=== PATIENT | female | born 1950 | race Caucasian/White ===

== ENCOUNTER 2017-02-09 06:03 | Inpatient (IN) | payer OTHER, MEDICARE ==
[2017-01-17 14:25] VITALS: BMI 35.0
--- NOTE | 2017-01-17 15:00 | PAT Medication Instructions ---
Service Date Jan 17, 2017. Current Home Medication List Anastrozole (Anastrozole), 1 TAB PO QAM Aspirin (Aspirin Ec), 81 MG PO QAM Atenolol/Chlorthalidone (Tenoretic 50 Mg/25 Mg), 1 TAB PO QAM Calcium Carbonate-Vitamin D (Calcium + D), 1 TAB PO QAM Cyclobenzaprine Hcl (Flexeril), 10 MG PO TID PRN for PRN Duloxetine HCl (Cymbalta), 1 CAP PO QAM Esomeprazole Magnesium (Nexium), 40 MG PO QAM Meloxicam (Mobic), 15 MG PO QAM Medication Instructions For Your Scheduled Surgery - Check with surgeon/prescribing physician for instructions: Anastrozole (Anastrozole), 1 TAB PO QAM Meloxicam (Mobic), 15 MG PO QAM - Hold the following medications the morning of surgery: Calcium Carbonate-Vitamin D (Calcium + D), 1 TAB PO QAM Cyclobenzaprine Hcl (Flexeril), 10 MG PO TID PRN for PRN - Take the following medications the morning of surgery with a sip of water: Esomeprazole Magnesium (Nexium), 40 MG PO QAM Duloxetine HCl (Cymbalta), 1 CAP PO QAM Aspirin (Aspirin Ec), 81 MG PO QAM Atenolol/Chlorthalidone (Tenoretic 50 Mg/25 Mg), 1 TAB PO QAM - Take the following medications as scheduled the night before surgery: Cyclobenzaprine Hcl (Flexeril), 10 MG PO TID PRN for PRN (if needed) If you have any questions please call us at [phone] or [phone] or [phone]
[2017-01-17 15:26] LABS: BASO % 0.4 %; BASO ABS # 0.03 K/uL (0-0.2); COMPLETE YES; EOS % 4.3 %; HEMATOCRIT 39.9 % (37-47); IG% 0.2 %; LYMPH % 28.3 %; LYMPH ABS # 2.31 K/uL (1.2-3.4); MEAN CELL VOLUME 91.7 fL (80-100); MEAN CORPUSCULAR HEMOGLOBIN 30.3 pg (25-34); MEAN CORPUSCULAR HGB CONC 33.1 g/dl (32-36); MEAN PLATELET VOLUME 9.9 fL (7.4-10.4); MONO % 7.1 %; NEUT % 59.7 %; PLATELET COUNT 315 K/uL (130-400); RED BLOOD COUNT 4.35 M/uL (4.2-5.4); WHITE BLOOD COUNT 8.17 K/uL (4.8-10.8)
[2017-01-17 15:32] LABS: URINE APPEARANCE CLEAR (CLEAR); URINE BILIRUBIN NEG (NEG); URINE COLOR YELLOW; URINE EPITHELIAL CELL AUTO >30 /lpf (0-5); URINE NITRITE NEG (NEG); URINE SPECIFIC GRAVITY 1.017 (1.000-1.030); UROBILINOGEN NEG (NEG); ZZUR CULT IF INDIC CLEAN CATCH NO
[2017-01-17 15:35] LABS: MANUAL MICROSCOPIC REQUIRED? NO; REVIEW REQ? NO
[2017-01-17 15:43] LABS: PARTIAL THROMBOPLASTIN RATIO 1.1
[2017-01-17 16:31] LABS: BUN/CREATININE RATIO 15.8 (10-20); CALCIUM 9.5 mg/dl (8.5-10.1); CREATININE 1.06 mg/dl (0.60-1.20); POTASSIUM 3.7 mmol/L (3.5-5.1)
[2017-01-18 07:55] LABS: ESTIMATED AVERAGE GLUCOSE 105 mg/dl; HA1C FLAG Normal (Normal)
--- NOTE | 2017-02-08 19:51 | HISTORY & PHYSICAL EXAMINATION ---
DATE OF ADMISSION: 02/09/2017 CHIEF COMPLAINT: Chronic left knee pain. HISTORY OF PRESENT ILLNESS: This is a 66-year-old female patient of Dr. Ochoa'liborio complaining of chronic left knee pain, longstanding, now progressively getting worse. The patient has failed conservative treatment including anti-inflammatories, intraarticular injections, viscosupplementation and physical therapy. She has also used a brace. The patient has increased pain with weightbearing activities and her pain does interfere with her activities of daily living. PAST MEDICAL HISTORY: Hypertension, hypercholesterolemia, acid reflux, hiatal hernia. PAST SURGICAL HISTORY: Gallbladder, bilateral foot surgery, bilateral carpal tunnel surgery, breast cancer surgery. REVIEW OF SYSTEMS: The patient complains of chronic left knee pain, otherwise denies any shortness of breath, chest pain, nausea, vomiting or joint complaints. FAMILY HISTORY: Noncontributory. MEDICATIONS: Duloxetine 30 mg daily, cyclobenzaprine 10 mg t.i.d., atenolol 50 mg daily, anastrozole 1 mg daily, Meloxicam 15 mg daily, calcium daily, aspirin 81 mg daily, Nexium 40 mg daily. ALLERGIES: INCLUDE DARVOCET AND MORPHINE. PHYSICAL EXAMINATION: GENERAL: Well-developed, well-nourished 66-year-old female in no acute distress. She is alert and oriented x3 and pleasant. HEENT: Normocephalic, atraumatic. Extraocular motions are intact. Pupils are equal and reactive to light. HEART: Regular rate and rhythm with no murmurs appreciated. LUNGS: Clear. ABDOMEN: Soft and nontender, bowel sounds are present. EXTREMITIES: Left knee reveals positive crepitation with painful range of motion of 0-125 degrees. She has a varus deformity. She has a moderate effusion. She has medial joint line tenderness. She has 4/5 strength. NEUROLOGIC: Neurovascularly, she is intact in her left lower extremity. DIAGNOSES: Left knee end-stage osteoarthritis with a history of hypertension, hypercholesterolemia, acid reflux, hiatal hernia. PLAN: The patient was advised of her diagnosis. Indications, risks, benefits, and postop course have all been reviewed. The patient wishes to proceed with a left total knee arthroplasty. Necessary consent forms, preoperative testing and clearances will be obtained.
[~2017-02-09] VITALS: Ht 170.2 cm; Wt 104.0 kg
[2017-02-09] VITALS (9 sets, daily range): BP systolic 96–148; BP diastolic 58–64; PULSE 89–116; TEMP 36.4–36.7; O2SAT 92–98; Ht 170.2 cm; Wt 104.0 kg
[~2017-02-09 06:03] MED LIST: ACETAMINOPHEN 500 MG TAB PO SCH; ANAS1TAB6 PO; ASPI81TA28 PO; ATEN-171 PO; CALC600T9 PO; CEFAZOLIN 2000MG IV PUSH 10 ML IV SCH; CYCL10TA6 PO; CYM/30 PO; CeleBREX 200 MG CAP PO SCH; DEXAMETHASONE 4 MG TAB PO SCH; FAMOTIDINE 20 MG TAB PO SCH; GABAPENTIN 300 MG CAP PO SCH; LACTATED RINGER'S 1000ML IV SCH; MELO7.5T5 PO; METOCLOPRAMIDE HCL 10 MG TAB PO SCH; NXM/40 PO; ROPIVACAINE 5MG/ML 30 ML 150 MG, BUPIVACAINE 0.5% MPF INJ 30 ML, EpINEphrine HCL INJ 0.... INFIL SCH; SCOPOLAMINE 1.5 MG TDSY TD SCH; TRANEXAMIC ACID INJ 1,000 MG in SYRINGE 0 ML IV SCH
[2017-02-09] MEDS ORDERED: TYLOTC500 PO (06:29)
[2017-02-09] MEDS ORDERED: BUPIVACAINE 0.5 % 5 MG/1 ML PF 10ML VIAL ONE (06:29)
[2017-02-09] MEDS: TRANEXAMIC ACID INJ 1,000 MG in SYRINGE 0 ML IV SCH ×2 (06:30→08:45)
--- NOTE | 2017-02-09 07:21 | History & Physical Bridge Note ---
H&P Re-Evaluation Bridge Note: I have examined the patient, reviewed the History & Physical and in the interval since the performance of the History & Physical I have noted the following changes of clinical significance: No changes noted
[2017-02-09] MEDS ORDERED: FENTANYL CITRATE INJ 50 MCG/1 ML 2 ML VIAL ONE (07:29)
[2017-02-09] MEDS ORDERED: MIDAZOLAM HCL 1 MG/ML 2ML VIAL ONE (07:29)
[2017-02-09] MEDS ORDERED: POVIDONE-IODINE OP SOLN 30 ML BTL ONE (07:59)
[2017-02-09] MEDS ORDERED: BACITRACIN 50000 UNIT VIAL ONE (07:59)
[2017-02-09] MEDS ORDERED: ORTHO JOINT ANESTHETIC ONE (07:59)
[2017-02-09] MEDS ORDERED: FENTANYL CITRATE INJ 50 MCG/1 ML 2 ML VIAL IV PRN (08:30)
[2017-02-09] MEDS ORDERED: EpHEDrine SULFATE INJ 50 MG/ML AMP IV PRN (08:30)
[2017-02-09] MEDS ORDERED: ONDANSETRON INJ 2 MG/ML 2 ML VIAL IV PRN ×2 (08:30→11:30)
[2017-02-09] MEDS ORDERED: ATROPINE SULFATE 0.1 MG/ML 5ML SYR IV PRN (08:30)
[2017-02-09] MEDS ORDERED: EpHEDrine SULFATE 50MG/5ML SYR ONE (10:35)
[2017-02-09] MEDS ORDERED: PROPOFOL IV EMULSION 10 MG/ML 20 ML VIAL IV ONE (10:35)
[2017-02-09] MEDS ORDERED: ONDANSETRON INJ 2 MG/ML 2 ML VIAL ONE (10:35)
[2017-02-09] MEDS ORDERED: PHENYLEPHRINE 100MCG/ML 5ML SYR ONE (10:35)
[2017-02-09] MEDS ORDERED: ESMOLOL HCL 10 MG/ML 10 ML VIAL ONE (10:35)
--- NOTE | 2017-02-09 11:01 | [facility] Post Operative Brief Note ---
Immediate Operative Summary Operative Date Feb 09, 2017. Pre-Operative Diagnosis Left knee end-stage osteoarthritis Post-Operative Diagnosis same as pre-operative Procedure(s) Performed Left Total Knee Arthroplasty-Cemented Surgeon Dr. John Ochoa Glassware Defect Repairer Surgeon(s) RUDDY Soni Estimated Blood Loss 5ml Findings djd varus grade 4 medial grade 2-3 patellofemoral Specimens Permanent Specimen A: Left knee bone and tissue Drains 2 hemovac Anesthesia spinal adductor block and orthomix Complication(s) None Disposition Recovery Room / PACU
[2017-02-09] MEDS ORDERED: MAGNESIUM HYDROXIDE SUSP 30 ML UDC PO PRN (11:30)
[2017-02-09] MEDS ORDERED: ALUMINUM/MAGNESIUM/SIMETH (MAALOX MAX) 30 ML UDC PO PRN (11:30)
[2017-02-09] MEDS ORDERED: HYDROmorphone INJ 0.5 MG/0.5 ML SYR IV PRN (11:30)
[2017-02-09] MEDS ORDERED: TRAMADOL HCL 50 MG TAB PO PRN (11:30)
[2017-02-09] MEDS ORDERED: OXYCODONE HCL IR 5 MG TAB (IMMEDIATE RELEASE) PO PRN (11:30)
--- NOTE | 2017-02-09 12:01 | DIAGNOSTIC IMAGING REPORT ---
TWO VIEWS LEFT KNEE CLINICAL HISTORY: Postoperative examination. FINDINGS: AP and crosstable lateral portable views of the left knee are obtained. A left knee arthroplasty is in near anatomic alignment. There has been undersurface remodeling of the patella. No acute fracture is seen. There are expected postoperative changes around the knee including skin clips, a surgical drain, soft tissue edema, and subcutaneous gas. IMPRESSION: Expected postoperative changes status post left knee arthroplasty. No acute fracture is seen. Electronically signed by: Irwin Norris M.D. 02/09/2017 11:59 AM Dictated Date/Time: 02/09/2017 11:59 AM
--- NOTE | 2017-02-09 12:53 | Anesthesiology Progress Note ---
Anesthesia Post Op Note Date & Time Feb 09, 2017 at 12:50 Vital Signs Pain Intensity: 0 Vital Signs Past 12 Hours Date Time Temp Pulse Resp B/P (MAP) Pulse Ox O2 Delivery O2 Flow Rate FiO2 02/09/17 12:49 36.2 02/09/17 12:20 36.7 16 104/52 (72) 99 Nasal Cannula 2 02/09/17 12:06 115/63 02/09/17 12:05 118 16 02/09/17 12:05 119 16 98 02/09/17 12:01 111/55 02/09/17 12:00 115 18 02/09/17 12:00 116 18 99 02/09/17 11:59 119 14 99 02/09/17 11:59 118 14 02/09/17 11:56 118/62 02/09/17 11:54 119 16 99 02/09/17 11:54 119 16 02/09/17 11:51 112/63 02/09/17 11:49 118 10 02/09/17 11:49 117 10 99 02/09/17 11:46 87/53 02/09/17 11:44 114 10 99 02/09/17 11:44 114 10 02/09/17 11:41 105/54 02/09/17 11:39 110 15 99 02/09/17 11:39 110 15 02/09/17 11:38 110 15 99 02/09/17 11:38 111 15 02/09/17 11:37 111 16 99 02/09/17 11:37 112 16 02/09/17 11:36 97/57 02/09/17 11:32 116 12 02/09/17 11:32 116 12 99 02/09/17 11:31 103/62 02/09/17 11:27 118 13 02/09/17 11:27 119 13 100 02/09/17 11:26 125/58 02/09/17 11:23 96/62 02/09/17 11:22 36.8 118 16 96/62 (73) 100 Oxymask 10 02/09/17 11:22 120 97 02/09/17 11:22 120 02/09/17 06:36 36.6 91 18 148/64 98 Room Air Notes Mental Status: alert / awake / arousable, participated in evaluation Pt Amnestic to Procedure: Yes Nausea / Vomiting: adequately controlled Pain: adequately controlled Airway Patency, RR, SpO2: stable & adequate BP & HR: stable & adequate, see Notes Hydration State: stable & adequate Anesthetic Complications: no major complications apparent Pt was noted to be tachycardic in PACU, HR 110-120. BP was stable throughout. An EKG was ordered showing sinus tachycardia. The pt was given a subsequent 500mL LR bolus. Pt's HR is still in the low 110s. BP 105/54. Pt denies CP, SOB, DEVRIES. Her spinal anesthetic is resolving. Pt was otherwise stable for discharge to her room.
[2017-02-09] MEDS: D5W AND 1/2NSS + 20MEQ KCL 1,000 ML IV SCH ×2 (14:05→23:31)
[2017-02-09] MEDS: ACETAMINOPHEN 500 MG TAB PO SCH ×2 (15:26→23:30)
[2017-02-09] MEDS: CHECK SCOPOLAMINE PATCH PLACEMENT SCH ×2 (15:26→23:29)
[2017-02-09] MEDS: FERROUS GLUCONATE 324 MG TAB PO SCH (18:04)
[2017-02-09] MEDS: CEFAZOLIN IV 2,000 MG in SYRINGE 0 ML IV SCH (18:04)
[2017-02-09] MEDS: CeleBREX 200 MG CAP PO SCH (20:41)
[2017-02-09] MEDS: ASPIRIN 81 MG ECTAB PO SCH (20:41)
[2017-02-09] MEDS: DOCUSATE SODIUM 100 MG CAP PO SCH (20:41)
[2017-02-09] MEDS: SENNA 8.6 MG TAB PO SCH (20:41)
--- NOTE | 2017-02-09 21:41 | OPERATIVE REPORT ---
DATE OF OPERATION: 02/09/2017 INDICATION FOR PROCEDURE: The patient is a 66-year-old female with progressive pain in her left knee. She has had knee arthroscopy surgery. Her radiographs demonstrate progressive arthritis. She has collapse of the medial femoral condyle, likely consistent with avascular necrosis. It is not 100% bone on bone but it is significantly narrowed medial compartment and she has had extensive conservative management, failed all conservative management and now presents for knee replacement surgery at this time. PREOPERATIVE DIAGNOSIS: Osteoarthritis, left knee, probable avascular necrosis medial femoral condyle. POSTOPERATIVE DIAGNOSIS: Same. PROCEDURE: Left total knee arthroplasty. SURGEON: John Ochoa MD. CARD WRITER HAND: Kevin Mann PA-C. ANESTHESIA: Regional block, adductor block, spinal and Orthomix. OPERATIVE PROCEDURE: The patient had an adductor block and spinal anesthetic, placed supine on the operating room table. Pneumatic tourniquet was placed on left upper thigh which was obese. Her left lower extremity was prepped and draped in sterile fashion. Exam demonstrated that she had a varus knee and she had full extension and flexion to 125 degrees. There is no particular instability. She had old arthroscopic portal scars. Leg was sterilely prepped and draped with ChloraPrep. Leg was elevated, exsanguinated with Esmarch bandage. Pneumatic tourniquet was raised to 325 mmHg. Anterior incision was made across the left knee. Skin incised sharply. Subcutaneous flaps were elevated. She had some thickened prepatellar bursa that was resected. The incision was made through medial retinaculum and extended up into the mid third of the quadriceps tendon and extended down to the medial tibial tubercle. Intraarticular findings demonstrated she did have tricompartmental DJD. She did have 1 small area of grade 4 wear on the anterior medial tibial plateau and few spots of grade 4 wear on the femoral condyle. She had otherwise generalized grade 2-3 DJD in the remainder of the knee. I used the [employer] Journey 2.0, total knee arthroplasty system using [employer] MRI templating, templating it for 4 femur and 2 tibia. To expose the knee, the infrapatellar fat pad was resected. The menisci were resected. The cruciate ligaments were resected. The fat pad over the anterior femur just to the joint line for placement of the component in that area was resected. She did have some intraarticular debris that was removed with a rongeur. The lateral synovial bands were released. The femur was then exposed with retractors. The custom femoral cutting block was pinned in position and the distal femoral cut was made. The 5-1 cutting block was placed for the size 4 femur. The anterior, posterior and chamfer cuts were made. The knee was then extended and a subperiosteal peel lateral release was performed around the patella and then the patella width was measured and was reproduced using a freehand cut technique and a 32 patellar component. Drill holes were made for this component and the excess lateral facet was beveled off to prevent any impingement. The tibia was then subluxed and the custom tibial cutting block was pinned in position. The proximal tibial cut was made. Ligament gaps were balanced in extension and flexion and we used the lamina welder 2nd shift to assist in that evaluation. The tibia was then resubluxed and the size 2 tibial trial was externally rotated in line with the tibial tubercle, pinned in position. The punch for the stem was used. The 4 femoral trial was inserted, centered and the notch cutting devices were used, the collet was placed and then a size 12 insert gave balanced ligaments through full range of motion. The patella did track slightly laterally, so we went ahead and did a lateral release leaving the synovium intact. The patella then tracked centrally. The trials were removed. The anesthetic cocktail was injected per protocol. The knee was copiously irrigated with pulsatile lavage antibiotic solution with bacitracin. Bony surfaces were dried. The final components were cemented with Simplex G cement. Final components were the 4 Oxinium posterior stabilized left femoral component of [employer] Journey 2.0 and 2 primary tibial baseplate, the 12 mm high flex posterior stabilized poly insert and a 32 patella domed. While the cement cured, Betadine soak was used per protocol. Then after further irrigation with pulsatile lavage antibiotic solution with bacitracin after the cement cured, the 2 drains were brought out laterally. The quadriceps tendon and medial retinaculum were then closed with interrupted [id number] #1 Vicryl sutures. The knee was taken through a full range of motion and repair was secured. The subcutaneous was closed with interrupted 2-0 Vicryl, skin was closed with stanley. Sterile dressings were applied and the patient tolerated the procedure well. RUDDY Soni was my psychological assistant. He functioned as psychological assistant through the entire procedure. He assisted in leg positioning, soft tissue retraction, instrument management and performed the fascial, subcutaneous and skin closure and will be participating in the postoperative care of the patient. I attest to the content of the Intraoperative Record and any orders documented therein. Any exception s are noted below.
[2017-02-10] VITALS (8 sets, daily range): BP systolic 97–118; BP diastolic 62–77; PULSE 60–85; TEMP 36.5–36.6; O2SAT 93–96
[2017-02-10] MEDS: CEFAZOLIN IV 2,000 MG in SYRINGE 0 ML IV SCH (02:26)
[2017-02-10 05:59] LABS: HEMATOCRIT 32.3 % (37-47); MEAN CELL VOLUME 89.2 fL (80-100); MEAN CORPUSCULAR HEMOGLOBIN 30.9 pg (25-34); MEAN CORPUSCULAR HGB CONC 34.7 g/dl (32-36); MEAN PLATELET VOLUME 10.1 fL (7.4-10.4); PLATELET COUNT 226 K/uL (130-400); RED BLOOD COUNT 3.62 M/uL (4.2-5.4); WHITE BLOOD COUNT 23.73 K/uL (4.8-10.8)
[2017-02-10 06:34] LABS: BUN/CREATININE RATIO 14.5 (10-20); CALCIUM 8.1 mg/dl (8.5-10.1); CREATININE 1.19 mg/dl (0.60-1.20); POTASSIUM 3.6 mmol/L (3.5-5.1)
[2017-02-10] MEDS: CHECK SCOPOLAMINE PATCH PLACEMENT SCH ×3 (07:45→23:18)
[2017-02-10] MEDS: ACETAMINOPHEN 500 MG TAB PO SCH ×3 (07:46→23:18)
--- NOTE | 2017-02-10 08:20 | Anesthesiology Progress Note ---
Anesthesia Post Op Note Date & Time Feb 10, 2017 at 08:19 Vital Signs Pain Intensity: 1.0 Vital Signs Past 12 Hours Date Time Temp Pulse Resp B/P (MAP) Pulse Ox O2 Delivery O2 Flow Rate FiO2 02/10/17 07:55 36.5 85 16 118/70 (86) 96 Room Air 02/10/17 03:21 36.5 83 16 110/69 (83) 94 Room Air 02/09/17 23:15 Room Air 02/09/17 23:07 36.5 89 14 100/58 (72) 93 Room Air Notes Mental Status: alert / awake / arousable, participated in evaluation Pt Amnestic to Procedure: Yes Nausea / Vomiting: adequately controlled Pain: adequately controlled Airway Patency, RR, SpO2: stable & adequate BP & HR: stable & adequate Hydration State: stable & adequate Anesthetic Complications: no major complications apparent
--- NOTE | 2017-02-10 09:02 | Orthopedic Progress Note ---
Orthopedic Progress Note Date of Service Feb 10, 2017. Subjective Post OP Day: 1 Reports: feeling well, pain controlled w PO medications, Denies: complaints, chest pain, SOB, nausea / vomiting, light headedness, calf pain Objective calves soft nontender, N/V intact, capillary refill less than 2 sec., dressing C /D/I, A&O x3, toes mobile Date Time Temp Pulse Resp B/P (MAP) Pulse Ox O2 Delivery O2 Flow Rate FiO2 02/10/17 08:43 96 Room Air 02/10/17 07:55 36.5 85 16 118/70 (86) 96 Room Air 02/10/17 03:21 36.5 83 16 110/69 (83) 94 Room Air 02/09/17 23:15 Room Air 02/09/17 23:07 36.5 89 14 100/58 (72) 93 Room Air 02/09/17 19:25 36.4 92 16 98/64 (75) 92 Room Air 02/09/17 18:58 92 Room Air 02/09/17 16:19 36.7 109 17 104/62 (76) 93 Room Air 02/09/17 15:30 Nasal Cannula 2.0 02/09/17 15:18 36.4 111 16 96/62 (73) 96 Nasal Cannula 2.0 02/09/17 14:23 36.6 109 17 102/64 (77) 97 Nasal Cannula 2.0 02/09/17 13:48 116 17 101/59 (73) 98 Nasal Cannula 2.0 02/09/17 13:15 36.5 112 14 102/61 (75) 97 Nasal Cannula 2.0 02/09/17 13:15 97 Nasal Cannula 2.0 02/09/17 13:15 97 Nasal Cannula 2.0 02/09/17 13:02 110 12 02/09/17 13:02 110 12 98 02/09/17 13:01 102/50 02/09/17 12:57 112 12 02/09/17 12:57 112 12 98 02/09/17 12:56 103/55 02/09/17 12:52 112 12 02/09/17 12:52 112 12 98 02/09/17 12:51 105/54 02/09/17 12:50 110 115/54 02/09/17 12:49 36.2 02/09/17 12:47 114 14 02/09/17 12:47 114 14 99 02/09/17 12:46 101/51 02/09/17 12:42 114 11 02/09/17 12:42 113 11 97 02/09/17 12:41 96/55 02/09/17 12:37 114 14 02/09/17 12:37 115 14 98 02/09/17 12:36 110/53 02/09/17 12:33 104/54 02/09/17 12:32 116 12 100 02/09/17 12:32 116 12 02/09/17 12:31 91/52 02/09/17 12:27 113 15 98 02/09/17 12:27 113 15 02/09/17 12:26 104/52 02/09/17 12:22 115 16 02/09/17 12:22 115 16 98 02/09/17 12:21 107/54 02/09/17 12:20 36.7 16 104/52 (72) 99 Nasal Cannula 2 02/09/17 12:17 114 12 98 02/09/17 12:17 114 12 02/09/17 12:16 117/58 02/09/17 12:12 117 13 97 02/09/17 12:12 117 13 02/09/17 12:11 112/61 02/09/17 12:07 119 13 02/09/17 12:07 119 13 98 02/09/17 12:06 115/63 02/09/17 12:05 118 16 02/09/17 12:05 119 16 98 02/09/17 12:01 111/55 02/09/17 12:00 115 18 02/09/17 12:00 116 18 99 02/09/17 11:59 119 14 99 02/09/17 11:59 118 14 02/09/17 11:56 118/62 02/09/17 11:54 119 16 99 02/09/17 11:54 119 16 02/09/17 11:51 112/63 02/09/17 11:49 118 10 02/09/17 11:49 117 10 99 02/09/17 11:46 87/53 02/09/17 11:44 114 10 99 02/09/17 11:44 114 10 02/09/17 11:41 105/54 02/09/17 11:39 110 15 99 02/09/17 11:39 110 15 02/09/17 11:38 110 15 99 02/09/17 11:38 111 15 02/09/17 11:37 111 16 99 02/09/17 11:37 112 16 02/09/17 11:36 97/57 02/09/17 11:32 116 12 02/09/17 11:32 116 12 99 02/09/17 11:31 103/62 02/09/17 11:27 118 13 02/09/17 11:27 119 13 100 02/09/17 11:26 125/58 02/09/17 11:23 96/62 02/09/17 11:22 36.8 118 16 96/62 (73) 100 Oxymask 10 02/09/17 11:22 120 97 02/09/17 11:22 120 Laboratory Results 24 Hours: Test 02/10/17 05:31 Hematocrit 32.3 % Hemoglobin 11.2 g/dL Assessment & Plan Assessment: POD #1, LEFT TKA Plan: PT/ OT DVT PROPH- ASA D/C PLANNING- HOME W OPPT SAT Inhouse Planning Pain Management: Celebrex, Ultram, Dilaudid, PO Tylenol, Oxy IR DVT Prophylaxis: TEDs, SCDs, ASA Discharge Planning Discharge Planning: home with oppt Pain Management: Celebrex, PO Tylenol, Oxy IR DVT Prophylaxis: TEDs, ASA Therapy: Physical Therapy, Occupational Therapy
[2017-02-10] MEDS: DULOXETINE (CYMBALTA) 30 MG CAP PO SCH (09:08)
[2017-02-10] MEDS: DOCUSATE SODIUM 100 MG CAP PO SCH ×2 (09:08→21:08)
[2017-02-10] MEDS: CeleBREX 200 MG CAP PO SCH ×2 (09:08→21:08)
[2017-02-10] MEDS: FERROUS GLUCONATE 324 MG TAB PO SCH ×3 (09:09→18:15)
[2017-02-10] MEDS: PANTOprazole SOD 40 MG TAB PO SCH (09:09)
[2017-02-10] MEDS: MULTIVITAMIN TAB PO SCH (09:09)
[2017-02-10] MEDS: ASPIRIN 81 MG ECTAB PO SCH ×2 (09:09→21:08)
[2017-02-10] MEDS: CHLORTHALIDONE 25 MG TAB PO SCH (09:10)
[2017-02-10] MEDS: ANASTROZOLE 1 MG TAB PO SCH (09:12)
[2017-02-10] MEDS: D5W AND 1/2NSS + 20MEQ KCL 1,000 ML IV SCH (09:13)
--- NOTE | 2017-02-10 14:22 | Medical Consult ---
Consultation Date of Consultation: Feb 10, 2017. Attending Physician: John Ochoa M.D. Reason for Consultation: Medical management History of Present Illness Pt is a 66 yo female with worsening left knee pain who has failed outpatient measures including anti-inflammatories, intraarticular injections, and PT. Pt status post left TKA, and consulted to our services for medical management. Pt reports pain controlled and doing well with PT. No further concerns expressed per patient. Social History Smoking Status: Never Smoker Alcohol Use: none Drug Use: none Allergies Coded Allergies: Morphine (Verified Adverse Reaction, Unknown, NAUSEA AND VOMITING, ) Propoxyphene (Verified Adverse Reaction, Unknown, NAUSEA AND VOMITING, ) Current Inpatient Medications Current Inpatient Medications Medications (Trade) Dose Ordered Sig/Praveen Route Start Time Stop Time Status Last Admin Dose Admin Miscellaneous (Remove Transderm-Scop Patch) 1 ea Q72H N/A 02/12/17 06:00 02/12/17 06:01 Miscellaneous Information (Check Scopolamine Patch Placement) 1 ea QS N/A 02/09/17 16:00 02/12/17 05:59 02/10/17 07:45 1 EA Anastrozole (Arimidex Tab) 1 mg QAM PO 02/10/17 09:00 03/12/17 08:59 02/10/17 09:12 1 MG Duloxetine HCl (Cymbalta Cap) 30 mg QAM PO 02/10/17 09:00 03/12/17 08:59 02/10/17 09:08 30 MG Atenolol (Tenormin Tab) 50 mg QAM PO 02/10/17 09:00 03/12/17 08:59 02/10/17 09:13 50 MG Hydromorphone HCl (Dilaudid Inj) 0.5 mg Q4HWA PRN IV 02/09/17 11:30 02/23/17 11:29 Celecoxib (CeleBREX CAP) 200 mg BID PO 02/09/17 21:00 03/11/17 20:59 02/10/17 09:08 200 MG Oxycodone HCl (Roxicodone Immediate Rel Tab) 1 TABLET FOR PAIN RATING... Q4H PRN PO 02/09/17 11:30 02/23/17 11:29 Acetaminophen (Tylenol Tab) 1,000 mg Q8H PO 02/09/17 16:00 03/11/17 11:29 02/10/17 07:46 1,000 MG Magnesium Hydroxide (Milk Of Magnesia Susp) 30 ml Q6H PRN PO 02/09/17 11:30 03/11/17 11:29 Senna (Senokot Tab) 17.2 mg HS PO 02/09/17 21:00 03/11/17 20:59 02/09/17 20:41 17.2 MG Docusate Sodium (coLACE CAP) 100 mg BID PO 02/09/17 21:00 03/11/17 20:59 02/10/17 09:08 100 MG Al Hydrox/Mg Hydrox/Simethicone (Maalox Max Susp) 15 ml Q4H PRN PO 02/09/17 11:30 03/11/17 11:29 Multivitamins (Multivitamin Tab) 1 tab QAM PO 02/10/17 09:00 03/12/17 08:59 02/10/17 09:09 1 TAB Ondansetron HCl (Zofran Inj) 4 mg Q6H PRN IV 02/09/17 11:30 03/11/17 11:29 Ferrous Gluconate (Ferrous Gluconate Tab) 324 mg TIDM PO 02/09/17 17:45 03/11/17 17:44 02/10/17 12:13 324 MG Pantoprazole Sodium (Protonix Tab) 40 mg QAM PO 02/10/17 09:00 02/13/17 09:01 02/10/17 09:09 40 MG Tramadol HCl (Ultram Tab) 1 tablet for pain rating... Q4H PRN PO 02/09/17 11:30 03/11/17 11:29 Aspirin (Ecotrin Tab) 81 mg BID PO 02/09/17 21:00 03/11/17 20:59 02/10/17 09:09 81 MG Chlorthalidone (Hygroton Tab) 25 mg QAM PO 02/10/17 09:00 03/12/17 08:59 02/10/17 09:10 25 MG Review of Systems Constitutional: No fever, No chills, No sweats, No weakness Eyes: No worsening of vision, No eye pain, No redness, No discharge Respiratory: No cough, No sputum, No wheezing, No shortness of breath Cardiovascular: No chest pain, No orthopnea, No PND, No edema Abdomen: No pain, No nausea, No vomiting, No diarrhea Musculoskeletal: No joint pain, No muscle pain, No swelling, No calf pain Genitourinary - Female: No dysuria, No urinary frequency, No urinary urgency, No urinary incontinence Neurologic: No memory loss, No paralysis, No weakness, No numbness/tingling Psychiatric: No depression symptoms, No anhedonism, No anxiety, No insomnia Endocrine: No fatigue, No excessive thirst, No excessive urination Integumentary: No rash, No itch Allergic / Immunologic: No environmental allergies, No seasonal allergies, No pet sensitivities, No food allergies Physical Exam Date Time Temp Pulse Resp B/P (MAP) Pulse Ox O2 Delivery O2 Flow Rate FiO2 02/10/17 11:59 36.5 60 16 100/66 (77) 94 Room Air 02/10/17 09:44 77 96 02/10/17 08:43 96 Room Air 02/10/17 07:55 36.5 85 16 118/70 (86) 96 Room Air 02/10/17 07:45 96 Room Air 02/10/17 03:21 36.5 83 16 110/69 (83) 94 Room Air 02/09/17 23:15 Room Air 02/09/17 23:07 36.5 89 14 100/58 (72) 93 Room Air 02/09/17 19:25 36.4 92 16 98/64 (75) 92 Room Air 02/09/17 18:58 92 Room Air 02/09/17 16:19 36.7 109 17 104/62 (76) 93 Room Air 02/09/17 15:30 Nasal Cannula 2.0 02/09/17 15:18 36.4 111 16 96/62 (73) 96 Nasal Cannula 2.0 02/09/17 14:23 36.6 109 17 102/64 (77) 97 Nasal Cannula 2.0 General Appearance: WD/WN, no apparent distress Head: normocephalic, atraumatic Eyes: normal inspection, PERRL, EOMI, sclerae normal ENT: normal ENT inspection, hearing grossly normal, TMs normal, pharynx normal Neck: supple, no adenopathy, thyroid normal, no JVD Respiratory/Chest: chest non-tender, lungs clear, normal breath sounds, no respiratory distress Cardiovascular: regular rate, rhythm, no edema, no gallop, no JVD Abdomen/GI: normal bowel sounds, non tender, soft, no organomegaly, no pulsatile mass Back: normal inspection, no CVA tenderness, no muscle spasm Extremities/Musculoskelatal: normal inspection, no calf tenderness, normal capillary refill, no pedal edema Neurologic/Psych: no motor/sensory deficits, alert, normal mood/affect, oriented x 3 Skin: normal color, warm/dry, no rash Lymphatic: no adenopathy Laboratory Results Last 24 Hours Test 02/10/17 05:31 White Blood Count 23.73 K/uL Red Blood Count 3.62 M/uL Hemoglobin 11.2 g/dL Hematocrit 32.3 % Mean Corpuscular Volume 89.2 fL Mean Corpuscular Hemoglobin 30.9 pg Mean Corpuscular Hemoglobin Concent 34.7 g/dl RDW Standard Deviation 41.0 fL RDW Coefficient of Variation 12.7 % Platelet Count 226 K/uL Mean Platelet Volume 10.1 fL Sodium Level 133 mmol/L Potassium Level 3.6 mmol/L Chloride Level 96 mmol/L Carbon Dioxide Level 30 mmol/L Anion Gap 7.0 mmol/L Blood Urea Nitrogen 17 mg/dl Creatinine 1.19 mg/dl Est Creatinine Clear Calc Drug Dose 56.9 ml/min Estimated GFR () 54.7 Estimated GFR (Non- 47.2 BUN/Creatinine Ratio 14.5 Random Glucose 180 mg/dl Calcium Level 8.1 mg/dl Assessment & Plan Pt is a 66 yo female w/ chronic left knee pain s/p left TKA POD#1 Left TKA - Reports pain controlled. DVT ppx and dispo per primary team. PT consulted. HTN - Controlled with atenolol/chlorthalidone Dyslipidemia stable Hiatal hernia/GERD - Cont PPI FULL CODE DVT ppx with ASA BID
--- NOTE | 2017-02-10 17:45 | Discharge Instructions ---
Discharge Instructions Date of Service Feb 10, 2017. Admission Reason for Admission: Left Knee Degenerative Joint Disease Discharge Discharge Diagnosis / Problem: left knee degenerative joint disease Discharge Goals Goal(s): Decrease discomfort, Improve function Activity Recommendations Activity Limitations: per Instructions/Follow-up section Weightbearing Status: Left weightbearing (as tolerated) . Instructions / Follow-Up Instructions / Follow-Up ACTIVITY RECOMMENDATIONS: SELF CARE INSTRUCTIONS AFTER TOTAL KNEE REPLACEMENT A. You may need to continue a physical therapy program after discharge from the hospital. There are several options available to you. Your doctor will assist you in selecting the best one for you. 1. An out-patient facility 3 times a week for therapy. 2. Home therapy for 1 to 2 weeks with outpatient therapy to follow. 3. Continue working on all exercises taught by physical therapy three times a day for 20 minutes on non-therapy days. Your goals should be to increase the bending of your knee to 90 degrees and beyond and to fully straighten your knee. Ice and elevate knee after exercise. B. Weight as tolerated with a walker or as instructed by your physician. C. It is okay to shower if minimal to no drainage from incision. No Baths. Do not soak wound. D. Make walking a part of your daily routine. Be up as much as comfortable with rest periods throughout the day. Rest with leg elevation is very important. Use the ice wrap frequently for the first 3-4 weeks. E. There are no restrictions on activities. You may ride in a car, shop, participate in assistant to the vice president and all social activities. F. Wear the long elastic stockings (KIMI hose) 20 hours a day for one month after surgery. They can be removed several times a day for laundering and when showering. G. Silverlon- This is a large adhesive bandage that contains silver ions. This helps your incision heal by fighting off bacteria and protecting it from the outside environment. You are permitted to shower with this dressing. This will remain on your incision for 7 days and then should be removed. Some visible blood or drainage through the dressing window is normal. If there is significant drainage or leaking noted before the 7 days notify your doctor's office immediately. Once removed, keep incision clean and dry. If there is any drainage or redness noted, please call your surgeon. SPECIAL CARE INSTRUCTIONS: VERY IMPORTANT TO READ AND REVIEW A. Take Coumadin, Xarelto, Aspirin or Lovenox (blood thinning medications) as directed by your doctor. If on Coumadin, have a pro-time (blood test) drawn according to your doctor's instructions. This will tell the doctor how well the Coumadin is thinning your blood. B. There are a few signs you need to watch for after you are home. Call [facility] if you notice any of the followin. Increased severe knee pain. Some pain is expected especially when you exercise. 2. Increased swelling in your leg or knee; pain or swelling of the calf muscle in either lower leg. 3. Any redness or fluid drainage from the incision. 4. Shortness of breath or chest pain. 5. A Temperature of 101 degrees F or greater. C. Please call [facility] at if you have any concerns or questions about your operation or recovery. The doctor or his nurse will return your call promptly. D. You must take antibiotics before dental work, bladder, bowel or other surgery. Your doctor will provide you with a permanent care to carry describing this precaution. FOLLOW UP VISIT: If appointment is not already scheduled: Please call [facility] to make a follow-up appointment for one month after your surgery at . Current Hospital Diet Patient's current hospital diet: Regular Diet Discharge Diet Recommended Diet: Regular Diet Procedures Procedures Performed: Left Total Knee Arthroplasty-Cemented Pending Studies Studies pending at discharge: no Laboratory Results Hemoglobin A1c Test 01/17/17 15:05 Range/Units Estimated Average Glucose 105 mg/dl Hemoglobin A1c 5.3 4.5-5.6 % Medical Emergencies . Who to Call and When: Medical Emergencies: If at any time you feel your situation is an emergency, please call 911 immediately. . Non-Emergent Contact Non-Emergency issues call your: Surgeon Call Non-Emergent contact if: temperature is above 101, your pain is not controlled, your pain is worsening, wound has increased drainage, wound has increased redness . "Provider Documentation" section prepared by Eric Marques. . VTE Core Measure Inpt VTE Proph given/why not?: Lisa Post, JUAN FRANCISCO's
[2017-02-10] MEDS: SENNA 8.6 MG TAB PO SCH (21:08)
[2017-02-11 06:50] VITALS: BP 130/79; PULSE 64; TEMP 36.5; O2SAT 98
[2017-02-11] MEDS: CHECK SCOPOLAMINE PATCH PLACEMENT SCH (08:00)
--- NOTE | 2017-02-11 08:14 | Orthopedic Progress Note ---
Orthopedic Progress Note Date of Service Feb 11, 2017. Subjective Post OP Day: 2 Reports: feeling well, pain controlled w PO medications, Denies: complaints, chest pain, nausea / vomiting, light headedness, calf pain Objective calves soft nontender, N/V intact, capillary refill less than 2 sec., dressing C /D/I, A&O x3, toes mobile Date Time Temp Pulse Resp B/P (MAP) Pulse Ox O2 Delivery O2 Flow Rate FiO2 02/11/17 06:50 36.5 64 16 130/79 (96) 98 Room Air 02/10/17 23:20 Room Air 02/10/17 22:47 36.6 65 15 118/77 (91) 94 Room Air 02/10/17 15:15 Room Air 02/10/17 14:58 36.6 84 16 97/62 (74) 93 Room Air 02/10/17 11:59 36.5 60 16 100/66 (77) 94 Room Air 02/10/17 09:44 77 96 02/10/17 08:43 96 Room Air Assessment & Plan Assessment: POD #2, LEFT TKA Plan: PT/ OT DVT PROPH- ASA D/C PLANNING- HOME W OPPT today Inhouse Planning Pain Management: Celebrex, Ultram, Dilaudid, PO Tylenol, Oxy IR DVT Prophylaxis: TEDs, SCDs, ASA Discharge Planning Discharge Planning: home with oppt Pain Management: Celebrex, PO Tylenol, Oxy IR DVT Prophylaxis: TEDs, ASA Therapy: Physical Therapy, Occupational Therapy
[2017-02-11] MEDS ORDERED: CLB200 PO (08:17)
[2017-02-11] MEDS ORDERED: ONDA8TAB6 PO (08:17)
[2017-02-11] MEDS ORDERED: ACET-24 PO (08:17)
[2017-02-11] MEDS ORDERED: RXC5 PO (08:17)
[2017-02-11] MEDS ORDERED: ASPEC81 PO (08:17)
[2017-02-11] MEDS: CeleBREX 200 MG CAP PO SCH (08:31)
[2017-02-11] MEDS: FERROUS GLUCONATE 324 MG TAB PO SCH (08:31)
[2017-02-11] MEDS: ACETAMINOPHEN 500 MG TAB PO SCH (08:31)
[2017-02-11] MEDS: DULOXETINE (CYMBALTA) 30 MG CAP PO SCH (08:32)
[2017-02-11] MEDS: DOCUSATE SODIUM 100 MG CAP PO SCH (08:32)
[2017-02-11] MEDS: ASPIRIN 81 MG ECTAB PO SCH (08:32)
[2017-02-11] MEDS: CHLORTHALIDONE 25 MG TAB PO SCH (08:32)
[2017-02-11] MEDS: PANTOprazole SOD 40 MG TAB PO SCH (08:33)
[2017-02-11] MEDS: MULTIVITAMIN TAB PO SCH (08:33)
[2017-02-11] MEDS: ANASTROZOLE 1 MG TAB PO SCH (08:37)
[2017-02-11 09:14] VITALS: BP 130/79; PULSE 64; TEMP 36.5; O2SAT 98
--- NOTE | 2017-02-13 14:47 | DISCHARGE SUMMARY ---
DISCHARGE DIAGNOSIS: Degenerative joint disease, left knee. SECONDARY DIAGNOSES: Hypertension, hypercholesterolemia, gastroesophageal reflux disease and hiatal hernia. CONSULTS: Luis Burciaga DO COMPLICATIONS: None. PROCEDURES: Left total knee arthroplasty performed by Dr. Ochoa on 02/09/2017. BRIEF HISTORY: As dictated in history and physical. HOSPITAL SUMMARY: The patient was admitted on the above-noted date and had the above-noted surgery performed which she tolerated well. On her first postoperative day, she was feeling well and had no complaints. Calves were soft, nontender, neurovascularly intact. Dressings clean, dry and intact. Toes were mobile. Vital signs stable, she was afebrile and hemoglobin was 11.2. She was started on physical therapy protocol and continued on DVT prophylaxis and pain management. Plans were for her to do outpatient PT upon discharge. By her second postoperative day, she was feeling well and pain was controlled. Calves were soft and nontender, neurovascularly intact. Dressings clean, dry and intact. Toes were mobile. Vital signs were stable. She was afebrile. She was progressing well with her physical therapy and remaining stable and it was felt she could be discharged to home. For further review, please see chart. LABORATORY AND X-RAY DATA: As per chart. DISCHARGE INSTRUCTIONS: The patient was discharged to home in satisfactory condition on 02/11/2017. DIET: Regular. ACTIVITY: Weightbearing as tolerated, left lower extremity. Follow TK instruction sheets and special care instructions as noted. FOLLOWUP: Follow up with Dr. Ochoa in 2 weeks. The patient to call for appointment if one has not been made for you. DISCHARGE MEDICATIONS: Acetaminophen 1000 mg p.o. q. 8 hours, aspirin 81 mg p.o. b.i.d. for 30 days, Celebrex 200 mg p.o. b.i.d., Zofran 8 mg p.o. q. 8 hours p.r.n. nausea, oxycodone 5-10 mg p.o. q. 4 hours p.r.n. Resume home meds as listed and stop taking Meloxicam after 30 days, resume taking her aspirin once daily. Stop taking q. 6 hour p.r.n. dose of acetaminophen that was being taking prior.
== END 2017-02-11 11:00 | disposition home or self-care (01) | DRG 470 ==
LOC: C.ACU 06:03 → C.3E 07:05 → ENRESERV 11:57
PROVIDERS: ADMIT Orthopaedic Surgery Sports Medicine; ATTEND Orthopaedic Surgery Sports Medicine
PROC: 0SRD0J9 Replacement of Left Knee Joint with Synthetic Substitute, Cemented, Open Approach (ICD-10-PCS; principal; 2017-02-09 09:00)
DX: M17.12 Unilateral primary osteoarthritis, left knee (principal); M87.052 Idiopathic aseptic necrosis of left femur; I10 Essential (primary) hypertension; E78.00 Pure hypercholesterolemia, unspecified; K21.9 Gastro-esophageal reflux disease without esophagitis; Z79.899 Other long term (current) drug therapy; Z79.82 Long term (current) use of aspirin; Z88.6 Allergy status to analgesic agent

== ENCOUNTER 2019-02-06 04:51 | Inpatient (IN) ==
--- NOTE | 2019-01-07 16:07 | PAT Medication Instructions ---
Medication Instructions Date of Service January 07, 2019 Home Medications aspirin 81 mg PO QAM 01/01/19 [History Confirmed 01/01/19] atenolol-chlorthalidone 1 tab PO QAM 01/01/19 [History Confirmed 01/01/19] cholecalciferol (vitamin D3) [Vitamin D3] 1,000 unit PO QAM 01/01/19 [History Confirmed 01/01/19] esomeprazole magnesium [Nexium] 40 mg PO QAM 01/01/19 [History Confirmed 01/01/19] ranolazine [Ranexa] 1,000 mg PO QAM 01/01/19 [History Confirmed 01/01/19] simvastatin 20 mg PO HS 01/01/19 [History Confirmed 01/01/19] telmisartan 20 mg PO QAM 01/01/19 [History Confirmed 01/01/19] DO NOT take the morning of surgery cholecalciferol (vitamin D3) [Vitamin D3] 1,000 unit PO QAM 01/01/19 [History Confirmed 01/01/19] telmisartan 20 mg PO QAM 01/01/19 [History Confirmed 01/01/19] Take morning of surgery With a small sip of water, OTHERWISE NOTHING TO EAT OR DRINK AFTER MIDNIGHT: aspirin 81 mg PO QAM 01/01/19 [History Confirmed 01/01/19] atenolol-chlorthalidone 1 tab PO QAM 01/01/19 [History Confirmed 01/01/19] esomeprazole magnesium [Nexium] 40 mg PO QAM 01/01/19 [History Confirmed 01/01/19] ranolazine [Ranexa] 1,000 mg PO QAM 01/01/19 [History Confirmed 01/01/19] Take evening before surgery simvastatin 20 mg PO HS 01/01/19 [History Confirmed 01/01/19] Other Notes If you have any questions please call us at [phone] or [phone] or [phone] or [phone]
--- NOTE | 2019-01-08 14:17 | Anesthesiology Consultation ---
Date of Service January 08, 2019 Assessment & Plan (1) Encounter for pre-operative examination: - Awaiting review preop testing (labs, EKG, CXR). - Awaiting surgeon-ordered PCP preop evaluation (Mart Esquivel, CHELLE). - Awaiting most recent cardiology office visit note (Dr. Delgadillo/Jamila). Chart Review Chart Review: Patient seen in Pre Admission Testing Teaching & Discussion Pre-Anesthesia Teaching/Discussion Notes: Instructed NPO after midnight before surgery,except medications with 15 cc of water. Medication instructions provided according to the PAT guidelines. History Surgery Operation Date: 02/06/19 07:00 Proposed Procedures p Right Total Knee Arthroplasty - John Ochoa MD Height/Weight Height: 5 ft 8 in Weight: 101.5 kg Allergies Allergy/AdvReac Type Severity Reaction Status Date / Time adhesive tape Allergy Mild SKIN Verified 01/01/19 11:00 SENSITIVITY morphine AdvReac Mild NAUSEA AND Verified 01/01/19 10:59 VOMITING propoxyphene AdvReac Mild NAUSEA AND Verified 01/01/19 10:59 VOMITING Medications Home Medications Medication Instructions Recorded Confirmed Last Taken aspirin 81 mg PO QAM 01/01/19 01/01/19 Unknown atenolol-chlorthalidone 1 tab PO QAM 01/01/19 01/01/19 Unknown cholecalciferol (vitamin D3) 1,000 unit PO QAM 01/01/19 01/01/19 Unknown [Vitamin D3] esomeprazole magnesium [Nexium] 40 mg PO QAM 01/01/19 01/01/19 Unknown ranolazine [Ranexa] 1,000 mg PO QAM 01/01/19 01/01/19 Unknown simvastatin 20 mg PO HS 01/01/19 01/01/19 Unknown telmisartan 20 mg PO QAM 01/01/19 01/01/19 Unknown Past Medical History Medical History (Updated 01/08/19 @ 14:22 by Elizabeth Mcwilliams) Breast cancer right s/p radiation/lumpectomy (RUE limb restriction) CAD (coronary artery disease) non-obstructive (Follows with Dr. Delgadillo/Jamila) GERD (gastroesophageal reflux disease) controlled Gout Hyperlipidemia Hypertension Obesity Osteoarthritis Exercise / Class Metabolic Activity III < 4 Walking/Shop/Light housework (one flight of stairs (no chest pain/+sob)) Past Family History Family History Other No significant family history Past Surgical History Surgical History History of appendectomy History of bladder surgery BLADDER TACK History of cardiac cath 2009= NO STENTS History of cholecystectomy History of colonoscopy History of endoscopic sinus surgery History of esophagogastroduodenoscopy (EGD) History of hysterectomy History of tooth extraction History of total knee replacement Left TKA: 02/09/17: SAB x 1 at L2-L3 + PNB at [facility] Hx of lumpectomy RT Past Anesthesia History No Hx of Anesthesia Complications (except PONV (no issues with left TKA)) and No Family Hx of Anesthesia Complications History of PONV History of PONV Social History Smoking Status: Never smoker Do You Dip or Chew Tobacco: No Hx Alcohol Use: No Hx Substance Use: No substance use type: does not use Review of Systems Reflux controlled. Patient denies chest pain, shortness of breath, cough, wheezing, palpitations. Physical Exam Vital Signs VITALS BP 130/81 P 61 TEMP 97.8 SP02 96%RA RESP 16 PHYSICAL Full neck and c-spine range of motion. Full TMJ range of motion. TMD 3.5 finger breaths Mallampati Score 2 Dentition: full upper plate, edentulous Lungs: clear throughout to auscultation Cardiac: regular rate and rhythm, no murmurs noted Spine: normal Carotid arteries: negative bruit Extremities: no edema Testing Echocardiogram Date: 08/22/17 EF 65%. No significant valvular disease. Stress Test Date: 08/22/16 Type: exercise Borderline positive EKG with evidence of ischemia at peak exercise (1mm horizontal to upsloping ST segment depressions noted during peak exercise in the inferior leads). 90% MPHR. No anginal symptoms. 7.0 METS. Stress test reviewed by cardiology at 02/09/17 visit in [place] 5.6.7 system: stress test "basically unchanged from previous study done on 03/02/15" and no chest pain-felt that they did not need to repeat stress test- "patient at optimal cardiac status"
--- NOTE | 2019-01-08 15:03 | XRay Report ---
XR chest Pre-admission PA/Lat HISTORY: 68 years-old Female pat preoperative exam. No acute chest complaints COMPARISON: None available TECHNIQUE: PA and lateral views of the chest FINDINGS: Opacity of the right cardiophrenic angle is suggestive of a prominent epicardial fat pad. Mild hyperi nflation. Mild linear subsegmental atelectasis/scarring of the right midlung. Ill-defined 11 mm nodul ar opacity of the lateral right midlung. Degenerative changes of the shoulders and spine. Cardiomedia stinal and hilar silhouettes are within normal limits. IMPRESSION: 1. Mild right hilar atelectasis/scarring without acute process. 2. 11 mm ill-defined nodular opacity of the lateral right midlung may reflect a pulmonary nodule vers us summation density. 3. Hyperinflation. The above report was generated using voice recognition software. It may contain grammatical, syntax o r spelling errors. Electronically signed by: Dov Roger M.D. 01/08/2019 3:01 PM
[2019-01-08 15:37] LABS: Basophils # (auto) 0.04 K/uL (0-0.2); Basophils % (auto) 0.4 %; Eosinophils # (auto) 0.24 K/uL (0-0.5); Eosinophils % (auto) 2.6 %; Hematocrit (blood only) 41.7 % (37-47); Hemoglobin 14.1 g/dL (12.0-16.0); Immature Granulocytes # (auto) 0.01 K/uL (0.00-0.02); Immature Granulocytes % (auto) 0.1 %; Lymphocytes # (auto) 2.55 K/uL (1.2-3.4); Lymphocytes % (auto) 27.7 %; Mean Corpuscular Hemoglobin 31.3 pg (25-34); Mean Corpuscular Hgb Conc 33.8 g/dL (32-36); Mean Corpuscular Volume 92.7 fL (80-100); Monocytes # (auto) 0.73 K/uL (0.11-0.59); Monocytes % (auto) 7.9 %; Neutrophils # (auto) 5.64 K/uL (1.4-6.5); Neutrophils % (auto) 61.3 %; Platelet Count 330 K/uL (130-400); RDW Coefficient of Variation 13.1 % (11.5-14.5); RDW Standard Deviation 44.2 fL (36.4-46.3); White Blood Count 9.21 K/uL (4.8-10.8)
[2019-01-08 15:46] LABS: Albumin Level 3.9 gm/dl (3.4-5.0); BUN Creatinine Ratio 14.3 (10-20); Calcium 9.9 mg/dl (8.5-10.1); Creatinine Clr Calc Pharmacy 57.5 ml/min; Est GFR (African American) 56.2; Est GFR (Non-African American) 48.5; Potassium 3.2 mmol/L (3.5-5.1)
[2019-01-08 15:46] LABS: Appearance Urine Clear (Clear); Bacteria Urine Automated Negative (Negative); Bilirubin Urine Negative (Negative); Blood Urine 1+ (Negative); Cast Urine Automated 0 /lpf (0-5); Color Urine Yellow; Glucose Urine UA Negative (Negative); Ketones Urine Negative (Negative); Leukocyte Esterase Urine Trace (Negative); Nitrite Urine Negative (Negative); Protein Urine Negative (Negative); RBC Urine Automated 0-4 /hpf (0-4); Specific Gravity Urine 1.015 (1.000-1.030); Urobilinogen Urine Negative (Negative)
[2019-01-08 15:48] LABS: INR 1.1 (0.9-1.1); Partial Thromboplastin Ratio 0.9; Partial Thromboplastin Time 25.1 Seconds (21.0-31.0); Prothrombin Time 10.8 Seconds (9.0-12.0)
[2019-01-09 05:50] LABS: Estimated Average Glucose 114 mg/dl; Hemoglobin A1C 5.6 % (4.5-5.6)
--- NOTE | 2019-02-05 19:49 | History and Physical Report ---
DATE OF ADMISSION: 02/06/2019 CHIEF COMPLAINT: Chronic right knee pain. HISTORY OF PRESENT ILLNESS: This is a 68-year-old female patient of Dr. Ochoa'liborio complaining of chronic right knee pain, longstanding, now progressively getting worse. The patient has failed conservative treatment including intra-articular injections, viscosupplementation and the use of a brace. The patient has increased pain with weightbearing activities and her pain does interfere with her activities of daily living. The patient has been diagnosed with end-stage osteoarthritis per clinical and radiographic exams and wishes to proceed with a right total knee arthroplasty. PAST MEDICAL HISTORY: Coronary artery disease, hypertension, hypercholesterolemia, rheumatoid arthritis, osteoarthritis, acid reflux, hiatal hernia, obesity, breast cancer. SOCIAL HISTORY: Nonsmoker, nondrinker. PAST SURGICAL HISTORY: Cholecystectomy, appendectomy, bilateral feet, carpal tunnel and right breast secondary to cancer. FAMILY HISTORY: Noncontributory. REVIEW OF SYSTEMS: Chronic right knee pain, otherwise denies any shortness of breath, chest pain, nausea, vomiting or any other joint complaints. ALLERGIES: INCLUDE DARVON. MEDICATIONS: 1. Duloxetine 30 mg daily. 2. Cyclobenzaprine 10 mg 3 times daily. 3. Atenolol 50 mg/hydrochlorothiazide 25 mg daily. 4. Aspirin 81 mg daily. 5. Nexium 40 mg daily. 6. Calcium daily. 7. Vitamin D3 daily. 8. Simvastatin 40 mg daily. 9. Letrozole 2.5 mg daily. 10. Klor-Con 20 mEq daily. 11. Ultram 50 mg every 6 hours as needed. PHYSICAL EXAMINATION: GENERAL: Well-developed, well-nourished 68-year-old female in no acute distress. She is alert and oriented x3 and pleasant. HEENT: Normocephalic, atraumatic. Extraocular motions are intact. Pupils are equal and reactive to light. HEART: Regular rate and rhythm, no murmurs. LUNGS: Clear. ABDOMEN: Soft, nontender, bowel sounds present. EXTREMITIES: Right knee reveals a varus deformity with mild effusion. She has medial joint line tenderness. Positive Marley's. Limited range of motion of 0-120, 5/5 strength with pain. Neurologically and neurovascularly, she is intact in her right lower extremity. DIAGNOSES: Right knee end-stage osteoarthritis, hypertension, hypercholesterolemia, coronary artery disease, rheumatoid arthritis, osteoarthritis, acid reflux, hiatal hernia, obesity, breast cancer. PLAN: The patient was advised of her diagnosis. Indications, risks, benefits, postop course have all been reviewed. The patient wished to proceed with a right total knee arthroplasty. Necessary consent forms, preoperative testing and clearances will be obtained.
[2019-02-06] MEDS ORDERED: LACTATED RINGER'S 1,000 ML IV SCH (05:45)
[2019-02-06] MEDS ORDERED: TRANEXAMIC ACID 1,000 MG **IV Intra-op IV SCH (06:00)
[2019-02-06] MEDS ORDERED: GABAPENTIN 300 MG CAP PO SCH (06:00)
[2019-02-06] MEDS ORDERED: FAMOTIDINE 20 MG TAB PO SCH (06:00)
[2019-02-06] MEDS ORDERED: ROPIVACAINE 0.5% HCL/PF 150 MG, BUPIVACAINE 0.5% MPF 30 ML, EPINEPHrine 30MG/30ML (OR U... INSTIL SCH (06:00)
[2019-02-06] MEDS ORDERED: ACETAMINOPHEN 500 MG TAB PO SCH (06:00)
[2019-02-06] MEDS ORDERED: METOCLOPRAMIDE HCL 10 MG TABLET PO SCH (06:00)
[2019-02-06] MEDS ORDERED: dexAMETHasone 4 MG TAB PO SCH (06:00)
[2019-02-06] MEDS ORDERED: CEFAZOLIN 2000MG 2,000 MG/15 ML SYR IV SCH (06:00)
[2019-02-06] MEDS ORDERED: CeleBREX 200 MG CAP PO SCH (06:00)
[2019-02-06] MEDS ORDERED: TRANEXAMIC ACID 1,000 MG **IV Pre-op IV SCH (06:00)
[2019-02-06] MEDS ORDERED: BACITRACIN INJ 50,000 UNIT VIAL ONE (06:29)
[2019-02-06] MEDS ORDERED: ORTHO JOINT ANESTHETIC ONE (06:29)
[2019-02-06] MEDS ORDERED: ROPIVACAINE 0.5% 5 MG/ML 30 ML VIAL ONE (06:32)
[2019-02-06] MEDS ORDERED: EPINEPHrine INJ 1 MG/ML AMP ONE (06:32)
[2019-02-06] MEDS ORDERED: BUPIVACAINE 0.5 % 5 MG/1 ML PF 10ML VIAL ONE (06:32)
[2019-02-06] MEDS ORDERED: fentaNYL citrate 100 MCG/2 ML VIAL ONE (06:48)
[2019-02-06] MEDS ORDERED: MIDAZOLAM HCL 1 MG/ML 2ML VIAL ONE (06:48)
[2019-02-06] MEDS ORDERED: SCOPOLAMINE 1.5 MG TDSY TD ONE (06:54)
--- NOTE | 2019-02-06 06:57 | History & Physical Bridge Note ---
Date of Service February 06, 2019 History & Physical Bridge Note I have examined the patient, reviewed the History & Physical and in the interval since the performance of the History & Physical I have noted the following changes of clinical significance: no changes noted
[2019-02-06] MEDS ORDERED: ONDANSETRON INJ 2 MG/ML 2 ML VIAL ONE (07:36)
[2019-02-06] MEDS ORDERED: LIDOCAINE HCL 2% 2 ML VIAL/AMP(20MG/ML) INFIL ONE (07:36)
[2019-02-06] MEDS ORDERED: PROPOFOL IV EMULSION 10 MG/ML 20 ML VIAL IV ONE ×2 (07:36→08:17)
[2019-02-06] MEDS ORDERED: CHECK SCOPOLAMINE PATCH PLACEMENT SCH (08:00)
--- NOTE | 2019-02-06 08:43 | Operative Report ---
Post Operative Report Pre & Post Diagnosis Operation Date: 02/06/19 07:00 Pre-Op Diagnosis: RIGHT KNEE OSTEOARTHRITIS Post-Op Diagnosis: RIGHT KNEE OSTEOARTHRITIS I identified the patient and participated in the time-out.: Yes Procedure Operation Date: 02/06/19 07:00 Actual Procedures p Right Total Knee Arthroplasty(Right) - John Ochoa MD Surgeon John Ochoa MD Senior Environmental Technician RUDDY Lion Estimated Blood Loss 5 Findings Consistent with Post-Op Diagnosis Specimens Bone cuts Drains 2 Hemovac Anesthesia Type MAC Spinal Regional Complications none Disposition Accompanied Patient To Recovery: No Disposition: Recovery Room Indications 68-year-old female with progressive right knee osteoarthritis. She is [id number] medial compartment but has some tricompartmental changes. She has a varus knee. She has some subluxation. Patient had prior left total knee replacement doing well. Description of Procedure The patient was taken to the operating room and anesthetized under spinal MAC regional. Patient was placed supine on the the operating table. A pneumatic tourniquet was placed about the right upper thigh. The knee exam demonstrated some slight lateral collateral laxity tight medial compartment good range of motion varus knee no instability obese thigh. The involved leg was elevated exsanguinated with Esmarch bandage and the pneumatic tourniquet was raised to 350 millimeters mercury. A longitudinal incision was made across the anterior knee. Skin flaps were elevated. An incision was made into the medial retinaculum and extended up into the mid third of the quadriceps tendon and extended down to the tibial tubercle. Intra-articular findings demonstrated tricompartment DJD with [id number] medial compartment varus knee. The knee was exposed by excising cruciate ligaments and menisci. The infrapatellar fat pad was resected. The fat pad over the anterior femur at the upper aspect of the articular surface was resected for placement of the component in that area. A subperiosteal peel lateral release was performed around the patella The [employer] journey 2.0 posterior stabilized total knee arthroplasty system was utilized for the procedure. The custom femoral cutting guide was pinned in position. The distal femoral cut was made. The size 4, 5 in 1 c utting block was placed. The anterior posterior and chamfer cuts were made. The knee was extended and a free hand cut technique was performed to the patella. The patella with was measured and the width was reproduced using a 32 symmetrical patella component. 3 drill holes are made for the patella component pegs. The tibia was then subluxed. The custom tibial cutting block was pinned in position and the proximal tibial cut was made with the oscillating saw. The size 2 tibial trial was externally rotated in line with the tibial tubercle and pinned in position. The punch for the stem was used. The femoral trial was inserted and centered the notch cutting devices were used and the collet was placed. Tibial trials were used for the insert. The size 12 trial gave balanced ligaments through full range of motion. Patella tracking was assessed with range of motion. The patella tracked very subtle liftoff so I did a lateral release leaving the synovium intact and the patella tracked centrally. The trials were removed. The Orthomix anesthetic cocktail was injected per protocol. The cut bone surfaces and soft tissue were copiously irrigated with antibiotic solution with bacitracin. The final components were cemented with Simplex cement. The final components were [employer] journey 2.04 posterior stabilized right femur 2 tibial baseplate 12 mm posterior stabilized polyethylene insert for the tibia and a 32 symmetrical patella. While the cement cured the Betadine soak was used per protocol. When the cement cured the knee was copiously irrigated with pulsatile lavage antibiotic solution with bacitracin. 2 drains were brought out laterally connected to Hemovac. The quadriceps tendon and medial retinaculum were closed with interrupted [id number] #1 Vicryl sutures. The knee was taken through full range of motion and repair was secure. The subcutaneous tissues were closed with 2-0 Vicryl sutures. The skin was closed with stanley. A sterile dressing was applied. The tourniquet was let down and the patient had good capillary refill to the extremity. The patient tolerated the procedure well. My physician hearing aid assistant RUDDY Lion assisted in the procedure including prepping draping leg positioning soft tissue retraction instrument management and assisted in the closure ,dressings application and will participate in postoperative care the patient. I attest to the content of the Intraoperative Record and any orders documented therein. Any exceptions are noted below.
--- NOTE | 2019-02-06 09:42 | XRay Report ---
XR knee RT 1 or 2V routine CLINICAL HISTORY: 68 years-old Female presenting with Surgical Post Op. TECHNIQUE: Frontal and crosstable lateral views of the right knee were obtained. COMPARISON: None. FINDINGS: Postsurgical changes of total right knee arthroplasty with patellar resurfacing. Expected intra-artic ular and soft tissue emphysema. Surgical drain in place. Overlying skin stanley. No periprosthetic fr acture or lucency. No malalignment. IMPRESSION: Expected postsurgical appearance status post total right knee arthroplasty with patellar resurfacing. Electronically signed by: Shadi Beckett M.D. 02/06/2019 9:41 AM
[2019-02-06] MEDS ORDERED: ePHEDrine sulfate 50 MG/ML AMP IV PRN (10:08)
[2019-02-06] MEDS ORDERED: ATROPINE SULFATE 0.1 MG/ML 10ML SYR IV PRN (10:08)
--- NOTE | 2019-02-06 10:08 | Anesthesiology Progress Note ---
Date of Service February 06, 2019 Anesthesia Post Procedure Vital Signs Vital Signs: Temp Pulse Pulse Resp BP BP Pulse Ox 02/06/19 10:00 80 14 118/75 96 02/06/19 09:50 79 14 138/72 97 02/06/19 09:40 80 13 137/88 95 02/06/19 09:30 81 12 129/71 96 02/06/19 09:20 83 14 132/69 96 02/06/19 09:10 87 12 125/65 98 02/06/19 09:02 36.2 C L 92 H 15 129/63 95 02/06/19 05:48 36.5 C 66 20 155/97 H 94 Pain Intensity Right Knee: Pain Intensity: 1 Transfer of Care Handoff Completed per policy Notes Mental Status: alert / awake / arousable Patient Amnestic to Procedure: Yes Nausea / Vomiting: adequately controlled Pain: adequately controlled Airway Patency, RR, SpO2: stable & adequate BP & HR: stable & adequate Hydration State: stable & adequate Neuraxial Anesthesia: was administered and sensory block is resolving Anesthetic Complications: no major complications apparent and Pt Satisfied with anesthetic care
[2019-02-06] MEDS ORDERED: MAGNESIUM HYDROXIDE SUSP 30 ML UDC PO PRN (10:41)
[2019-02-06] MEDS ORDERED: bisacodyL 10 MG SUPP PR PRN (10:41)
[2019-02-06] MEDS ORDERED: NALOXONE HCL 0.4 MG/1 ML VIAL/CARP IV PRN (10:41)
[2019-02-06] MEDS ORDERED: ONDANSETRON INJ 2 MG/ML 2 ML VIAL IV PRN (10:41)
[2019-02-06] MEDS ORDERED: HYDROmorphone INJ 0.5 MG/0.5 ML SYR IV PRN (10:41)
--- NOTE | 2019-02-06 12:19 | Hospitalist Consultation ---
Date of Consultation February 06, 2019 Assessment & Plan (1) Post-operative state: Post TKA 02/06 Pain control, dvt proph per primary monitor for acute blood loss (2) CAD (coronary artery disease): cotninue atenolol, statin, ASA when ok with surgery, and ranolazine (3) GERD (gastroesophageal reflux disease): continue ppi (4) Hyperlipidemia: continue statin (5) Hypertension: hold telmisartan and chlorthalidone post op day 1 to avoid hypotension, can resume post op day 2 if kidney function and blood pressures are wnl Supervising Physician Co-Signing Physician Notes I supervised Lorraine Medley NP on this patient's care. I examined the patient today independently of her. I discussed the plan of care with her with the plan being as written in her note except for any following changes/exceptions: None. No concerns after surgery. Eating well and without nausea. Will monitor vitals and counts, but otherwise doing well. History of Present Illness Attending Physician: John Ochoa MD History of Present Illness Ms. Friedman is post total knee today. She is feeling well, no complaints, eating lunch. Pmhx: CAD, htn, hld, RA, OA, GERD, breast CA, TIA Social: never smoker, no alcohol, retired, Family: denies significant family medical history Allergies Allergy/AdvReac Type Severity Reaction Status Date / Time adhesive tape Allergy Mild SKIN Verified 01/01/19 11:00 SENSITIVITY morphine AdvReac Mild NAUSEA AND Verified 01/01/19 10:59 VOMITING propoxyphene AdvReac Mild NAUSEA AND Verified 01/01/19 10:59 VOMITING Home Medications Home Medications Medication Instructions Recorded Confirmed Type aspirin 81 mg PO QAM 01/01/19 02/06/19 History atenolol-chlorthalidone [Tenoretic 1 tab PO QAM 01/01/19 02/06/19 History 50] cholecalciferol (vitamin D3) 1,000 unit PO QAM 01/01/19 02/06/19 History [Vitamin D3] esomeprazole magnesium [Nexium] 40 mg PO QAM 01/01/19 02/06/19 History ranolazine [Ranexa] 1,000 mg PO QAM 01/01/19 02/06/19 History simvastatin 20 mg PO HS 01/01/19 02/06/19 History telmisartan 20 mg PO QAM 01/01/19 02/06/19 History Patient History Family History Other No significant family history Social History Preferred Language: Estonian Communication Ability: Effective [employer] Required: No Beliefs That Will Affect Care: None marital status: Current Living Situation: Spouse Other Information That Helps Us Care for You: No Feels Safe at Home: Yes Safety Concerns: Feels Safe At This Time Smoking Status: Never smoker Do You Dip or Chew Tobacco: No ; Second Hand Exposure: Yes ; Tobacco Cessation Education Requested by Patient: No Hx Alcohol Use: No Hx Substance Use: No Physical Exam Physical Exam: General: no distress Eyes: normal inspection, PERLL Respiratory: chest non tender, clear to auscultation, normal breath sounds, no respiratory distress, no accessory muscle use Cardiac: regular rate and rhythm, no rub or gallop, no murmur, no edema, no jvd GI/: active bowel sounds, no abd pain or tenderness, soft, non distended Extremities: normal range of motion, normal strength, non tender Neuro/Psych: alert and oriented x 3, normal mood and affect Skin: normal color, dry Results & Data Vital Signs (Past 12 Hours) Vital Signs Temp Pulse Pulse Pulse Resp BP BP 02/06/19 11:34 83 16 115/72 02/06/19 11:08 80 16 122/73 02/06/19 10:30 36.8 C 84 125/78 02/06/19 10:10 36.7 C 84 13 124/72 02/06/19 10:00 80 14 118/75 02/06/19 09:50 79 14 138/72 02/06/19 09:40 80 13 137/88 02/06/19 09:30 81 12 129/71 02/06/19 09:20 83 14 132/69 02/06/19 09:10 87 12 125/65 02/06/19 09:02 36.2 C L 92 H 15 129/63 02/06/19 05:48 36.5 C 66 20 155/97 H Pulse Ox 02/06/19 11:34 98 02/06/19 11:08 98 02/06/19 10:30 97 02/06/19 10:10 96 02/06/19 10:00 96 02/06/19 09:50 97 02/06/19 09:40 95 02/06/19 09:30 96 02/06/19 09:20 96 02/06/19 09:10 98 02/06/19 09:02 95 02/06/19 05:48 94 PG Care Time/CCT Total # of Minutes Spent Total Time Spent with Patient: Total time spent is greater than 50% in coordination of care (as documented) at patient's floor/unit and/or counseling patient:
[2019-02-06] MEDS: SODIUM CHLORIDE 0.9% 1000ML 1,000 ML IV SCH ×2 (12:25→22:01)
[2019-02-06] MEDS: ACETAMINOPHEN 500 MG TAB PO SCH ×2 (14:04→22:03)
[2019-02-06] MEDS: CEFAZOLIN 2000MG 2,000 MG/15 ML SYR IV SCH ×2 (14:04→22:06)
[2019-02-06] MEDS: POTASSIUM CHLORIDE 20 MEQ TABCR PO SCH (18:45)
[2019-02-06] MEDS: OXYCODONE HCL IR 5 MG TAB (IMMEDIATE RELEASE) PO PRN (19:07)
[2019-02-06] MEDS: ASPIRIN 81 MG ECTAB PO SCH (20:21)
[2019-02-06] MEDS: CeleBREX 200 MG CAP PO SCH (20:22)
[2019-02-06] MEDS: SIMVASTATIN 20 MG TAB PO SCH (20:22)
[2019-02-06] MEDS: DOCUSATE SODIUM 100 MG CAP PO SCH (20:22)
[2019-02-06] MEDS: SENNA 8.6 MG TAB PO SCH (20:22)
[2019-02-07] MEDS: ACETAMINOPHEN 500 MG TAB PO SCH ×3 (06:09→21:02)
[2019-02-07 06:24] LABS: Hematocrit (blood only) 34.3 % (37-47); Hemoglobin 11.5 g/dL (12.0-16.0); Mean Corpuscular Hemoglobin 30.7 pg (25-34); Mean Corpuscular Hgb Conc 33.5 g/dL (32-36); Mean Corpuscular Volume 91.5 fL (80-100); Platelet Count 280 K/uL (130-400); RDW Standard Deviation 43.2 fL (36.4-46.3); Red Blood Count 3.75 M/uL (4.2-5.4); White Blood Count 20.96 K/uL (4.8-10.8)
[2019-02-07 06:53] LABS: BUN Creatinine Ratio 21.6 (10-20); Calcium 8.5 mg/dl (8.5-10.1); Creatinine Clr Calc Pharmacy 57.2 ml/min; Est GFR (African American) 55.6; Potassium 3.7 mmol/L (3.5-5.1)
--- NOTE | 2019-02-07 07:49 | Orthopedic Progress Note ---
Date of Service February 07, 2019 Assessment & Plan (1) Arthritis of right knee: POD #1, Right TKA PT/ OT DVT proph- ASA D/C planning- Home w OPPT Monitor foot drop As per medicine. Subjective POD #1, Doing well Denies SOB, CP, N/V Pain controlled well. Wishes OPPT on D/C. Physical Exam Physical Exam: Right knee dressings c/d/i. No drainage. Drain in tact. Toes mobile, ankle with some drop foot primarily with dorsiflexion. NO calf tenderness A&Ox3. Results & Data Vital Signs (Past 12 Hours) Vital Signs Temp Pulse Resp BP Pulse Ox 02/07/19 03:15 36.4 C L 71 16 120/69 94 02/06/19 23:00 36.5 C 61 16 108/69 93 02/06/19 20:07 36.8 C 75 18 103/65 93
[2019-02-07] MEDS: OXYCODONE HCL IR 5 MG TAB (IMMEDIATE RELEASE) PO PRN ×2 (08:43→13:15)
[2019-02-07] MEDS: RANOLAZINE 500 MG ER TAB PO SCH (08:44)
[2019-02-07] MEDS: PANTOprazole 40 MG TAB PO SCH (08:44)
[2019-02-07] MEDS: POTASSIUM CHLORIDE 20 MEQ TABCR PO SCH (08:44)
[2019-02-07] MEDS: DOCUSATE SODIUM 100 MG CAP PO SCH ×2 (08:44→21:03)
[2019-02-07] MEDS: CeleBREX 200 MG CAP PO SCH ×2 (08:44→21:01)
[2019-02-07] MEDS: MULTIVITAMIN TAB PO SCH (08:44)
[2019-02-07] MEDS: CHOLECALCIFEROL 1,000 UNITS TAB PO SCH (08:44)
[2019-02-07] MEDS: ATENOLOL 50 MG TABLET PO SCH (08:44)
[2019-02-07] MEDS: ASPIRIN 81 MG ECTAB PO SCH ×2 (08:45→21:01)
[2019-02-07] MEDS ORDERED: ATENOLOL CHLORTHALIDONE PO SCH (09:00)
[2019-02-07] MEDS ORDERED: CHLORTHALIDONE 25 MG TAB PO SCH (09:00)
--- NOTE | 2019-02-07 13:55 | Hospitalist Progress Note ---
Date of Service February 07, 2019 Assessment & Plan (1) Post-operative state: Post TKA 02/06 Pain control, dvt proph per primary (2) CAD (coronary artery disease): continue atenolol, statin, ASA when ok with surgery, and ranolazine (3) GERD (gastroesophageal reflux disease): continue ppi (4) Hyperlipidemia: continue statin (5) Hypertension: hold telmisartan and chlorthalidone post op day 1 to avoid hypotension, will resume post op day 2 (6) Acute blood loss anemia: Hgb decreased from 14.1 to 11.5 after surgery Continue to monitor Medicine will sign off at this time. Please let us know if you have any further questions or concerns Subjective Ms. Friedman feels well today. No complaints. ROS Constitutional: no chills, aches, sweats or fever Respiratory: no sob,cough, sputum, or wheezing Cardiac: no chest pain, palpitations, edema, orthopnea or lightheadedness GI: no abdominal pain, nausea, vomiting, diarrhea or constipation : no dysuria or hesitancy Extremities: no joint pain or weakness Skin: no rash All other systems reviewed and negative Physical Exam Physical Exam: General: no distress Eyes: normal inspection, PERLL Respiratory: chest non tender, clear to auscultation, normal breath sounds, no respiratory distress, no accessory muscle use Cardiac: regular rate and rhythm, no rub or gallop, no murmur, no edema, no jvd GI/: active bowel sounds, no abd pain or tenderness, soft, non distended Extremities: normal range of motion, normal strength, non tender Neuro/Psych: alert and oriented x 3, normal mood and affect Skin: normal color, dry Results & Data Vital Signs (Past 12 Hours) Vital Signs Temp Pulse Resp BP Pulse Ox 02/07/19 12:00 36.5 C 59 L 16 109/71 95 02/07/19 07:27 36.6 C 58 L 16 95/62 L 97 02/07/19 03:15 36.4 C L 71 16 120/69 94 PG Care Time/CCT Total # of Minutes Spent Total Time Spent with Patient: Total time spent is greater than 50% in coordination of care (as documented) at patient's floor/unit and/or counseling patient:
[2019-02-07] MEDS: TELMISARTAN 20 MG TAB PO SCH (14:37)
[2019-02-07] MEDS: SENNA 8.6 MG TAB PO SCH (21:02)
[2019-02-07] MEDS: SIMVASTATIN 20 MG TAB PO SCH (21:03)
[2019-02-08] MEDS: OXYCODONE HCL IR 5 MG TAB (IMMEDIATE RELEASE) PO PRN (00:03)
[2019-02-08 06:27] LABS: Hematocrit (blood only) 33.7 % (37-47); Hemoglobin 10.9 g/dL (12.0-16.0); Mean Corpuscular Hemoglobin 30.7 pg (25-34); Mean Corpuscular Hgb Conc 32.3 g/dL (32-36); Mean Corpuscular Volume 94.9 fL (80-100); Mean Platelet Volume 9.6 fL (7.4-10.4); Platelet Count 232 K/uL (130-400); RDW Coefficient of Variation 13.3 % (11.5-14.5); Red Blood Count 3.55 M/uL (4.2-5.4); White Blood Count 11.54 K/uL (4.8-10.8)
[2019-02-08] MEDS: ACETAMINOPHEN 500 MG TAB PO SCH (06:56)
[2019-02-08 07:02] LABS: BUN Creatinine Ratio 21.5 (10-20); Calcium 9.3 mg/dl (8.5-10.1); Creatinine Clr Calc Pharmacy 51.1 ml/min; Est GFR (African American) 48.5; Est GFR (Non-African American) 41.8; Potassium 3.8 mmol/L (3.5-5.1)
[2019-02-08] MEDS: DOCUSATE SODIUM 100 MG CAP PO SCH (07:29)
[2019-02-08] MEDS: ASPIRIN 81 MG ECTAB PO SCH (07:30)
[2019-02-08] MEDS: ATENOLOL 50 MG TABLET PO SCH (07:30)
[2019-02-08] MEDS: MULTIVITAMIN TAB PO SCH (07:30)
[2019-02-08] MEDS: TELMISARTAN 20 MG TAB PO SCH (07:30)
[2019-02-08] MEDS: PANTOprazole 40 MG TAB PO SCH (07:30)
[2019-02-08] MEDS: CHOLECALCIFEROL 1,000 UNITS TAB PO SCH (07:30)
[2019-02-08] MEDS: RANOLAZINE 500 MG ER TAB PO SCH (07:31)
[2019-02-08] MEDS: POTASSIUM CHLORIDE 20 MEQ TABCR PO SCH (07:31)
[2019-02-08] MEDS: CeleBREX 200 MG CAP PO SCH (07:31)
--- NOTE | 2019-02-08 08:39 | Orthopedic Progress Note ---
Date of Service February 08, 2019 Assessment & Plan (1) Arthritis of right knee: POD #2, Right TKA PT/ OT DVT proph-ASA D/C planning- Home w OPPT today Subjective POD 32, Doing well No C/o's. Pain controlled well. Physical Exam Physical Exam: Right knee incision c/d/i, no drainage, no erythema. No calf tenderness. Toes and ankle mobile A&Ox3 Results & Data Vital Signs (Past 12 Hours) Vital Signs Temp Pulse Resp BP Pulse Ox 02/08/19 06:40 36.6 C 57 L 16 127/79 94 02/07/19 23:30 36.5 C 61 16 173/78 H 96
--- NOTE | 2019-02-18 20:41 | Discharge Summary ---
HISTORY OF PRESENT ILLNESS: This is a 68-year-old female patient of Dr. Ochoa's complaining of chronic right knee pain, longstanding, now progressively getting worse. The patient was diagnosed with end-stage osteoarthritis and failed conservative treatment. The patient elected to proceed with a right total knee arthroplasty. PAST MEDICAL HISTORY: Coronary artery disease, hypertension, hypercholesterolemia, rheumatoid arthritis, osteoarthritis, acid reflux, hiatal hernia, obesity and a history of breast cancer. POSTOPERATIVE COURSE: The patient underwent a right total knee arthroplasty on 02/06/2019. She was followed closely with medical consultation, physical therapy, pain control and DVT prophylaxis in the form of aspirin. The patient did very well postoperatively and was discharged home on postoperative day #2. PHYSICAL EXAMINATION: On discharge, right knee incision was clean, dry and intact. Ria are intact. Skin edges were approximated well. There was no redness or drainage. She had no calf tenderness. Negative Homans sign. Toes and ankle were mobile. Neurologically and neurovascularly, she is intact in her right lower extremity. DIAGNOSES: Status post right total knee arthroplasty, coronary artery disease, hypertension, hypercholesterolemia, rheumatoid arthritis, osteoarthritis, acid reflux, hiatal hernia, obesity and a history of breast cancer. PLAN: The patient was discharged home with outpatient physical therapy. She will continue her preadmission medications with the addition of pain medications and aspirin for DVT prophylaxis. The patient will follow up as scheduled as an outpatient with Dr. Ochoa.
== END 2019-02-08 10:23 | disposition home or self-care (01) | DRG 470 ==
LOC: ASU 04:51 → 3E 09:07